=== PATIENT | male | born 1965 | race Caucasian/White ===

== ENCOUNTER → 2024-05-23 | Outpatient (CLI) | payer OTHER ==
[~2024-05-23] MED LIST: AIRSUPRA 90-810.7 GM PO; ALDACTONE50 M1 PO; ASPIRIN81 M1 PO; BREZTRI AEROS10.7 GM PO; DOXAZOSIN MESYLA8 MG PO; FARXIGA10 M1 PO; HYDRALAZINE HYD50 MG PO; LIPITOR10 MG PO; METHOCARBAMOL500 M1 PO; METOPROLOL TART50 M1 PO; NICOTINE PATCH1 EAC2 TD; NORVASC10 MG PO; PLAVIX75 M1 PO; Regadenoson 0.4 MG/5 ML SYR IV ONE; TRULICITY3 MG/0.5 M SQ; ZESTRIL40 MG PO
== END | disposition home or self-care (01) ==
LOC: CARD 01:00
PROVIDERS: ATTEND Internal Medicine Cardiovascular Disease
DX: I37.1 Nonrheumatic pulmonary valve insufficiency (principal); I73.9 Peripheral vascular disease, unspecified; R06.09 Other forms of dyspnea; R06.02 Shortness of breath; I49.9 Cardiac arrhythmia, unspecified; I49.1 Atrial premature depolarization; I27.20 Pulmonary hypertension, unspecified

== ENCOUNTER → 2024-09-18 | Outpatient (CLI) | payer OTHER ==
[~2024-09-18] MED LIST changes: -Regadenoson 0.4 MG/5 ML SYR IV ONE
[2024-09-18 10:52] LABS: PLATELET COUNT AUTOMATED 175.0 10*3/uL (130-400)
[2024-09-18 11:24] LABS: BUN 36.0 mg/dl (9-23)
== END | disposition home or self-care (01) ==
LOC: LAB 10:25
PROVIDERS: ATTEND Internal Medicine Cardiovascular Disease
DX: Z01.812 Encounter for preprocedural laboratory examination (principal)

== ENCOUNTER → 2024-11-09 | Outpatient (CLI) | payer OTHER ==
[2024-11-09 08:54] LABS: SGPT/ALT 15 U/L (5-49)
== END | disposition home or self-care (01) ==
LOC: LAB 07:36
PROVIDERS: ATTEND Nurse Practitioner Primary Care
DX: N40.1 Benign prostatic hyperplasia with lower urinary tract symptoms (principal); E29.1 Testicular hypofunction

== ENCOUNTER → 2024-12-18 | Outpatient (CLI) | payer OTHER ==
[2024-12-18 10:46] LABS: PLATELET COUNT AUTOMATED 180.0 10*3/uL (130-400)
[2024-12-18 11:11] LABS: BUN 24.0 mg/dl (9-23)
== END | disposition home or self-care (01) ==
LOC: LAB 10:22
PROVIDERS: ATTEND Internal Medicine Cardiovascular Disease
DX: I70.209 Unspecified atherosclerosis of native arteries of extremities, unspecified extremity (principal)

== ENCOUNTER → 2025-01-09 | Outpatient (CLI) | payer OTHER ==
[2025-01-09 08:29] LABS: SGPT/ALT 9.0 U/L (5-49)
== END | disposition home or self-care (01) ==
LOC: LAB 07:33
PROVIDERS: ATTEND Nurse Practitioner Primary Care
DX: E29.1 Testicular hypofunction (principal); N40.1 Benign prostatic hyperplasia with lower urinary tract symptoms

== ENCOUNTER → 2025-02-20 | Outpatient (CLI) | payer OTHER ==
[2025-02-20 12:30] LABS: VITAMIN D, 25-HYDROXY 17.4 ng/mL (30-100)
[2025-02-20 12:46] LABS: BUN 31.0 mg/dl (9-23); SGPT/ALT 19.0 U/L (5-49)
== END | disposition home or self-care (01) ==
LOC: LAB 11:27
PROVIDERS: ATTEND Internal Medicine Nephrology
DX: E83.9 Disorder of mineral metabolism, unspecified (principal); N18.32 Chronic kidney disease, stage 3b; I12.9 Hypertensive chronic kidney disease with stage 1 through stage 4 chronic kidney disease, or unspecified chronic kidney disease